=== PATIENT | female | born 1995 | race Caucasian/White ===

== ENCOUNTER 2018-08-12 10:37 | Inpatient (IN) | payer OTHER ==
[~2018-08-12] VITALS: Ht 165.1 cm; Wt 54.4 kg
[2018-08-12 12:51] LABS: *URINE HCG, QUAL NEGATIVE (NEGATIVE)
[2018-08-12 13:14] LABS: *AMPHETAMINE, URINE NEGATIVE (NEGATIVE); *BARBITURATE, URINE NEGATIVE (NEGATIVE); *CANNABINOID, URINE POSITIVE (NEGATIVE); *COCCAINE, URINE NEGATIVE (NEGATIVE); *OPIATE, URINE POSITIVE (NEGATIVE); *PHENCYCLIDINE SCREEN,URINE NEGATIVE (NEGATIVE)
[2018-08-12] MEDS ORDERED: BUPRENORPHINE HCL 2 MG TAB.SUBL SL PRN (14:15)
[2018-08-12] MEDS ORDERED: 5 DAY TAPER VALIUM-SERENITY PROTOCOL PO PRN (14:15)
[2018-08-12] MEDS ORDERED: ONDANSETRON 4 MG/2 ML VIAL IM PRN (14:15)
[2018-08-12] MEDS ORDERED: HYDROXYZINE PAMOATE 25 MG CAPSULE PO PRN (14:15)
[2018-08-12] MEDS ORDERED: LORAZEPAM 2 MG/1 ML VIAL IM PRN (14:15)
[2018-08-12] MEDS ORDERED: 5 DAY TAPER BUPRENORPHINE -SERENITY PROTOCOL SL PRN (14:15)
[2018-08-12] MEDS ORDERED: DIAZEPAM 5 MG TABLET PO PRN (14:15)
[2018-08-12] MEDS ORDERED: DIAZEPAM 10 MG TABLET PO PRN ×2 (14:15)
[2018-08-12] MEDS ORDERED: MIRALAX 17 GM POWD.PACK PO PRN (14:15)
[2018-08-12] MEDS ORDERED: METHOCARBAMOL 750 MG TABLET PO PRN (14:15)
[2018-08-12] MEDS ORDERED: ACETAMINOPHEN 325 MG TABLET PO PRN (14:15)
[2018-08-12] MEDS ORDERED: IBUPROFEN 600 MG TABLET PO PRN (14:15)
[2018-08-12] MEDS ORDERED: MAG HYDROX/AL HYDROX/SIMETH 30 ML LIQUID UDC PO PRN (14:15)
[2018-08-12] MEDS ORDERED: CLONIDINE HCL 0.1 MG TABLET PO PRN (14:15)
[2018-08-12] MEDS ORDERED: diphenhydrAMINE 50 MG CAPSULE PO PRN (14:15)
[2018-08-12] MEDS ORDERED: LOPERAMIDE HCL 2 MG CAPSULE PO PRN ×2 (14:15)
[2018-08-12] MEDS: ONDANSETRON ODT 4 MG TAB.RAPDIS SL PRN ×2 (14:52→20:54)
[2018-08-12] MEDS: MULTIVITAMINS,THERAPEUTIC TABLET PO SCH (14:53)
[2018-08-12] MEDS: DIAZEPAM 10 MG TABLET PO SCH ×3 (14:54→20:54)
[2018-08-12] MEDS: BUPRENORPHINE HCL 2 MG TAB.SUBL SL SCH ×3 (14:54→20:54)
[2018-08-12 15:02] LABS: BASOPHILS # (AUTO) 0.1 K/uL (0.0-8.0); BASOPHILS % (AUTO) 0.6 % (0.0-2.0); EOSINOPHILS # (AUTO) 0.1 K/uL (0.0-0.7); EOSINOPHILS % (AUTO) 0.7 % (0.0-7.0); HEMATOCRIT 44.3 % (31.2-41.9); HEMOGLOBIN 15.1 g/dL (10.9-14.3); LYMPHOCYTES # (AUTO) 2.6 K/uL (20.0-40.0); LYMPHOCYTES % (AUTO) 20.3 % (20.5-51.5); MEAN CORPUSCULAR HEMOGLOBIN 30.2 uug (24.7-32.8); MEAN CORPUSCULAR HGB CONC 34 g/dL (32.3-35.6); MONOCYTES # (AUTO) 0.7 K/uL (2.0-10.0); MONOCYTES % (AUTO) 5.9 % (0.0-11.0); NEUTROPHILS # (AUTO) 9.1 K/uL (1.8-8.9); NEUTROPHILS % (AUTO) 72.5 % (38.5-71.5); PLATELET COUNT (AUTO) 407 K/uL (179-408); RED BLOOD CELL COUNT(AUTO) 4.98 MIL/uL (3.63-4.92); WHITE BLOOD COUNT (AUTO) 12.6 K/uL (3.8-11.8)
[2018-08-12 15:13] LABS: ALANINE AMINOTRANSFERASE 30 U/L (14-59); ALKALINE PHOSPHATASE 69 U/L (50-136); ASPARTATE AMINOTRANSFERASE 20 U/L (15-37); BILIRUBIN,TOTAL 0.5 mg/dL (0.2-1.0); CARBON DIOXIDE 24 mmol/L (21-32); CHLORIDE 107 mmol/L (98-107); CREATININE 0.8 mg/dL (0.6-1.3); GLUCOSE 112 mg/dL (74-106); MAGNESIUM 2.1 mg/dL (1.8-2.4); POTASSIUM 3.5 mmol/L (3.5-5.1); TOTAL PROTEIN, SERUM 8.3 g/dL (6.4-8.2); UREA NITROGEN, BLOOD 9 mg/dL (7-18)
[2018-08-12 15:17] LABS: ETHANOL < 3 MG/DL (0-0)
[2018-08-12 15:47] LABS: THYROID STIMULATING HORMONE 0.179 mIU/mL (0.358-3.740)
[2018-08-12 16:00] VITALS: BP 137/84
[2018-08-12] MEDS ORDERED: BUPRENORPHINE HCL 2 MG TAB.SUBL SL SCH (17:00)
[2018-08-12] MEDS: DICYCLOMINE HCL 20 MG TABLET PO PRN (18:19)
[2018-08-12 20:00] VITALS: BP 126/70
[2018-08-12] MEDS ORDERED: DIAZEPAM 10 MG TABLET PO SCH (21:00)
[2018-08-13] VITALS: BP 112/64
[2018-08-13] MEDS: ONDANSETRON ODT 4 MG TAB.RAPDIS SL PRN ×2 (06:55→22:47)
[2018-08-13] MEDS: DICYCLOMINE HCL 20 MG TABLET PO PRN (06:55)
[2018-08-13 08:00] VITALS: BP 103/67
[2018-08-13] MEDS: DIAZEPAM 5 MG TABLET PO SCH ×4 (08:41→21:23)
[2018-08-13] MEDS: BUPRENORPHINE HCL 2 MG TAB.SUBL SL SCH ×3 (08:41→21:24)
[2018-08-13] MEDS: MULTIVITAMINS,THERAPEUTIC TABLET PO SCH (08:41)
[2018-08-13] MEDS ORDERED: TUBERCULIN,PURIF.PROT.DERIV. 5 TU/0.1 ML TEST ID ONE (09:00)
[2018-08-13] MEDS ORDERED: BUPRENORPHINE HCL 2 MG TAB.SUBL SL SCH (09:00)
[2018-08-13 12:00] VITALS: BP 124/64
[2018-08-13 12:06] LABS: HEPATITIS B SURFACE AG Negative (Negative)
[2018-08-13 16:00] VITALS: BP 136/81
[2018-08-13] MEDS ORDERED: DIAZEPAM 5 MG TABLET PO SCH (17:00)
[2018-08-13 20:00] VITALS: BP 114/66
[2018-08-13] MEDS: QUETIAPINE FUMARATE 25 MG TABLET PO PRN (23:05)
[2018-08-13] MEDS: MAGNESIUM HYDROXIDE 30 ML LIQUID UDC PO PRN (23:05)
[2018-08-14 08:00] VITALS: BP 102/60
[2018-08-14 08:35] LABS: HEMOGLOBIN 13.7 g/dL (10.9-14.3); MEAN CORPUSCULAR VOLUME 89.5 fL (75.5-95.3); MONOCYTES # (AUTO) 0.5 K/uL (2.0-10.0); NEUTROPHILS # (AUTO) 2.2 K/uL (1.8-8.9)
[2018-08-14 08:40] LABS: BASOPHILS # (AUTO) 0.1 K/uL (0.0-8.0); EOSINOPHILS # (AUTO) 0.3 K/uL (0.0-0.7); EOSINOPHILS % (AUTO) 5.2 % (0.0-7.0); HEMATOCRIT 40.1 % (31.2-41.9); LYMPHOCYTES # (AUTO) 3.6 K/uL (20.0-40.0); LYMPHOCYTES % (AUTO) 53.7 % (20.5-51.5); MEAN CORPUSCULAR HEMOGLOBIN 30.5 uug (24.7-32.8); MEAN CORPUSCULAR HGB CONC 34 g/dL (32.3-35.6); MONOCYTES % (AUTO) 7.2 % (0.0-11.0); NEUTROPHILS % (AUTO) 32.9 % (38.5-71.5); RED BLOOD CELL COUNT(AUTO) 4.48 MIL/uL (3.63-4.92)
[2018-08-14 08:41] LABS: PLATELET COUNT (AUTO) 293 K/uL (179-408); WHITE BLOOD COUNT (AUTO) 6.7 K/uL (3.8-11.8)
[2018-08-14] MEDS: MULTIVITAMINS,THERAPEUTIC TABLET PO SCH (08:50)
[2018-08-14] MEDS: DIAZEPAM 5 MG TABLET PO SCH ×3 (08:51→21:34)
[2018-08-14] MEDS ORDERED: BUPRENORPHINE HCL 2 MG TAB.SUBL SL SCH ×3 (09:00→15:00)
[2018-08-14 12:00] VITALS: BP 111/51
[2018-08-14] MEDS: BUPRENORPHINE HCL 2 MG TAB.SUBL SL SCH ×2 (14:40→21:35)
[2018-08-14 16:36] VITALS: BP 133/53
[2018-08-14 20:00] VITALS: BP 117/75
[2018-08-14] MEDS ORDERED: DIAZEPAM 5 MG TABLET PO SCH (21:00)
[2018-08-14] MEDS: MAGNESIUM HYDROXIDE 30 ML LIQUID UDC PO PRN (22:04)
[2018-08-14] MEDS: QUETIAPINE FUMARATE 25 MG TABLET PO PRN (22:04)
[2018-08-15] VITALS: BP 114/69
[2018-08-15 04:00] VITALS: BP 115/71
[2018-08-15 08:00] VITALS: BP 116/50
[2018-08-15] MEDS: BUPRENORPHINE HCL 2 MG TAB.SUBL SL SCH ×3 (08:46→20:50)
[2018-08-15] MEDS: MULTIVITAMINS,THERAPEUTIC TABLET PO SCH (08:46)
[2018-08-15] MEDS: DIAZEPAM 5 MG TABLET PO SCH ×2 (08:46→20:49)
[2018-08-15] MEDS ORDERED: BUPRENORPHINE HCL 2 MG TAB.SUBL SL SCH (09:00)
[2018-08-15 12:00] VITALS: BP 138/72
[2018-08-15 16:40] VITALS: BP 141/72
[2018-08-15 20:00] VITALS: BP 134/80
[2018-08-15] MEDS ORDERED: DIAZEPAM 5 MG TABLET PO SCH (21:00)
[2018-08-15] MEDS: QUETIAPINE FUMARATE 25 MG TABLET PO PRN (22:56)
[2018-08-16] VITALS: BP 119/79
[2018-08-16 04:00] VITALS: BP 108/81
[2018-08-16 08:00] VITALS: BP 112/67
[2018-08-16] MEDS: MULTIVITAMINS,THERAPEUTIC TABLET PO SCH (08:28)
[2018-08-16] MEDS ORDERED: BUPRENORPHINE HCL 2 MG TAB.SUBL SL SCH (09:00)
[2018-08-16] MEDS ORDERED: DIAZEPAM 5 MG TABLET PO SCH (09:00)
[2018-08-16 12:00] VITALS: BP 140/77
[2018-08-16] MEDS ORDERED: METH-406 PO (14:54)
[2018-08-16] MEDS ORDERED: QUET25TA PO (14:54)
[2018-08-16] MEDS ORDERED: CLON0.1T14 PO (14:54)
[2018-08-16] MEDS ORDERED: HYDR-3895 PO (14:54)
[2018-08-16 16:00] VITALS: BP 140/75
[2018-08-16 20:00] VITALS: BP 143/78
[2018-08-16] MEDS: QUETIAPINE FUMARATE 25 MG TABLET PO PRN (22:20)
[2018-08-17 08:05] VITALS: BP 138/79
[2018-08-17] MEDS ORDERED: BUPRENORPHINE HCL 2 MG TAB.SUBL SL SCH (09:00)
[2018-08-17] MEDS ORDERED: DIAZEPAM 5 MG TABLET PO SCH (09:00)
[2018-08-17] MEDS: MULTIVITAMINS,THERAPEUTIC TABLET PO SCH (09:13)
== END 2018-08-17 09:30 | disposition other institution (70) | DRG 895 ==
LOC: SRC 11:46
PROVIDERS: ADMIT Family Medicine Addiction Medicine; ATTEND Family Medicine Addiction Medicine
PROC: HZ2ZZZZ Detoxification Services for Substance Abuse Treatment (ICD-10-PCS; principal; 2018-08-12)
PROC: HZ41ZZZ Group Counseling for Substance Abuse Treatment, Behavioral (ICD-10-PCS; principal; 2018-08-12)
PROC: HZ31ZZZ Individual Counseling for Substance Abuse Treatment, Behavioral (ICD-10-PCS; 2018-08-15)
DX: F11.23 Opioid dependence with withdrawal (principal); F13.230 Sedative, hypnotic or anxiolytic dependence with withdrawal, uncomplicated; F17.290 Nicotine dependence, other tobacco product, uncomplicated; G47.00 Insomnia, unspecified; Z65.3 Problems related to other legal circumstances; F15.10 Other stimulant abuse, uncomplicated; F12.10 Cannabis abuse, uncomplicated; I80.8 Phlebitis and thrombophlebitis of other sites; F41.9 Anxiety disorder, unspecified; F32.9 Major depressive disorder, single episode, unspecified; Z59.9 Problem related to housing and economic circumstances, unspecified
CPT/HCPCS: 36415; 70030-TC; 80307; 80346; 80349; 80361; 83735; 84443; 84703; 85025; 86580; 86592; 86705; 86803; 87340; 87806; G0480; Q0162